=== PATIENT | female | born 1995 | race Caucasian/White ===

== ENCOUNTER 2017-02-13 17:19 | Emergency (ER) | payer OTHER ==
[2017-02-13 19:59] VITALS: BP 97/61
== END 2017-02-13 19:59 | disposition home or self-care (01) ==
LOC: ED 17:19
DX: G43.909 Migraine, unspecified, not intractable, without status migrainosus (principal)
CPT/HCPCS: J1885; J2765

== ENCOUNTER 2017-04-09 14:35 | Emergency (ER) | payer OTHER ==
[~2017-04-09] VITALS: Ht 152.4 cm; Wt 95.9 kg
[2017-04-09 19:06] VITALS: BP 138/79
[2017-04-11 07:48] LABS: RAPID PLASMA REAGIN Non Reactive (Non Reactive)
== END 2017-04-09 19:06 | disposition home or self-care (01) ==
LOC: ED 14:35
PROVIDERS: Emergency Medicine
DX: Z20.2 Contact with and (suspected) exposure to infections with a predominantly sexual mode of transmission (principal)
CPT/HCPCS: 36415; 87491; 87591; J0696; J2001

== ENCOUNTER 2018-01-25 00:32 | Emergency (ER) | payer OTHER ==
[~2018-01-25] VITALS: Ht 152.4 cm; Wt 94.8 kg
[2018-01-25 00:48] VITALS: Ht 152.4 cm; Wt 94.8 kg
[2018-01-25 02:19] VITALS: BP 111/68
== END 2018-01-25 02:19 | disposition home or self-care (01) ==
LOC: ED 00:32
DX: N76.0 Acute vaginitis (principal)
CPT/HCPCS: Q0163

== ENCOUNTER 2018-03-15 17:31 | Emergency (ER) | payer OTHER ==
[~2018-03-15] VITALS: Ht 152.4 cm; Wt 92.5 kg
[2018-03-15 17:46] VITALS: Ht 152.4 cm; Wt 92.5 kg
[2018-03-15 18:22] VITALS: BP 121/61
== END 2018-03-15 18:22 | disposition home or self-care (01) ==
LOC: ED 17:31
DX: N94.6 Dysmenorrhea, unspecified (principal)

== ENCOUNTER 2018-04-21 17:41 | Emergency (ER) | payer OTHER ==
[~2018-04-21] VITALS: Ht 157.5 cm; Wt 92.7 kg
[2018-04-21 17:48] VITALS: Ht 157.5 cm; Wt 92.7 kg
[2018-04-21 19:43] VITALS: BP 108/70
== END 2018-04-21 19:43 | disposition home or self-care (01) ==
LOC: ED 17:41
DX: N94.6 Dysmenorrhea, unspecified (principal)
CPT/HCPCS: J1885

== ENCOUNTER 2019-01-05 19:35 | Emergency (ER) | payer OTHER ==
[~2019-01-05] VITALS: Ht 160 cm; Wt 13.2 kg
[2019-01-05 20:11] VITALS: Ht 160 cm; Wt 13.2 kg
[2019-01-05 22:32] VITALS: BP 91/51
== END 2019-01-05 22:32 | disposition home or self-care (01) ==
LOC: ED 19:35
DX: J06.9 Acute upper respiratory infection, unspecified (principal)
CPT/HCPCS: 87804

== ENCOUNTER 2019-01-16 13:49 | Emergency (ER) | payer OTHER ==
[~2019-01-16] VITALS: Ht 152.4 cm; Wt 94.5 kg
[2019-01-16 15:09] LABS: BASOPHIL % 0.1 % (0-2)
[2019-01-16 15:18] LABS: PLATELET COUNT 492 x10^3mcL (130-400); RED CELL DISTRIBUTION WIDTH 15.5 % (11.5-14.5)
[2019-01-16 15:38] LABS: CALCIUM 9.2 mg/dL (8.5-10.1); CARBON DIOXIDE 29.1 mmol/L (21-32); CHLORIDE SERUM 104 mmol/L (98-107); CREATININE SERUM 0.6 mg/dL (0.6-1.0); GFR1 > 60 mL/min; GLUCOSE SERUM 100 mg/dL (74-106); SODIUM SERUM 140 mmol/L (136-145)
[2019-01-16 15:43] LABS: ALKALINE PHOSPHATASE 119 U/L (46-116); ALT/SGPT 91 U/L (14-59); AST/SGOT 45 U/L (15-37); BILIRUBIN TOTAL 0.3 mg/dL (0.20-1.00); TOTAL PROTEIN, SERUM 7.7 g/dL (6.4-8.2)
[2019-01-16 15:50] LABS: ALBUMIN 3.2 g/dL (3.4-5.0)
[2019-01-16 19:17] VITALS: BP 146/74
== END 2019-01-16 19:17 | disposition home or self-care (01) ==
LOC: ED 13:49
PROVIDERS: Emergency Medicine
DX: K52.9 Noninfective gastroenteritis and colitis, unspecified (principal); Z88.8 Allergy status to other drugs, medicaments and biological substances
CPT/HCPCS: J1885; J7030

== ENCOUNTER 2019-11-04 15:50 | Emergency (ER) | payer OTHER ==
[~2019-11-04] VITALS: Ht 152.4 cm; Wt 64.4 kg
[2019-11-04 16:06] VITALS: BP 110/71; Ht 152.4 cm; Wt 64.4 kg
== END 2019-11-04 17:29 | disposition left against medical advice (07) ==
LOC: ED 15:50
DX: Z53.21 Procedure and treatment not carried out due to patient leaving prior to being seen by health care provider (principal)

== ENCOUNTER 2019-11-04 17:35 | Emergency (ER) | payer OTHER ==
[~2019-11-04] VITALS: Ht 152.4 cm; Wt 97.1 kg
[2019-11-04 17:39] VITALS: Ht 152.4 cm; Wt 97.1 kg
[2019-11-04 20:03] VITALS: BP 117/70
== END 2019-11-04 20:03 | disposition home or self-care (01) ==
LOC: ED 17:35
DX: S16.1XXA Strain of muscle, fascia and tendon at neck level, initial encounter (principal); Z88.8 Allergy status to other drugs, medicaments and biological substances; X58.XXXA Exposure to other specified factors, initial encounter; Y93.89 Activity, other specified; Y92.89 Other specified places as the place of occurrence of the external cause; Y99.8 Other external cause status

== ENCOUNTER 2020-06-26 17:37 | Emergency (ER) | payer OTHER ==
[~2020-06-26] VITALS: Ht 165.1 cm; Wt 92.1 kg
[2020-06-26 17:45] VITALS: BP 133/76; Ht 165.1 cm; Wt 92.1 kg
== END 2020-06-26 19:01 | disposition home or self-care (01) ==
LOC: ED 17:37
DX: T19.2XXA Foreign body in vulva and vagina, initial encounter (principal); N76.0 Acute vaginitis; Z88.1 Allergy status to other antibiotic agents; X58.XXXA Exposure to other specified factors, initial encounter; Y93.89 Activity, other specified; Y92.89 Other specified places as the place of occurrence of the external cause; Y99.8 Other external cause status
CPT/HCPCS: 87491; 87591

== ENCOUNTER 2020-10-06 23:32 | Emergency (ER) | payer OTHER ==
[~2020-10-06] VITALS: Ht 152.4 cm; Wt 92.5 kg
[2020-10-06 23:41] VITALS: Ht 152.4 cm; Wt 92.5 kg
[2020-10-07 02:15] VITALS: BP 129/70
== END 2020-10-07 02:15 | disposition home or self-care (01) ==
LOC: ED 23:32
DX: Z11.3 Encounter for screening for infections with a predominantly sexual mode of transmission (principal); Z88.1 Allergy status to other antibiotic agents; E28.2 Polycystic ovarian syndrome